=== PATIENT | female | born 2000 | race Caucasian/White ===

== ENCOUNTER 2023-01-16 01:17 | Emergency (ER) | payer SELFPAY ==
[~2023-01-16] VITALS: Ht 160 cm; Wt 129.2 kg
[2023-01-16 01:22] VITALS: O2SAT 98
[2023-01-16] MEDS ORDERED: METHYLPREDNISOLONE SOD SUCC 125MG/2ML (ACT-O-VIAL) IM STA (01:27)
[2023-01-16] MEDS ORDERED: FAMOTIDINE 20MG TABLET PO ONE (01:30)
[2023-01-16] MEDS ORDERED: DIPHENHYDRAMINE 50MG/ML VIAL IM ONE (01:30)
[2023-01-16] MEDS ORDERED: P50 PO (01:59)
[2023-01-16] MEDS ORDERED: DIPH25CA83 PO (01:59)
[2023-01-16 02:29] VITALS: BP 144/77; PULSE 89; RESP 16; TEMP 98.8
== END 2023-01-16 02:42 | disposition home or self-care (01) ==
LOC: ER 01:17
DX: L50.9 Urticaria, unspecified (principal); T78.40XA Allergy, unspecified, initial encounter; X58.XXXA Exposure to other specified factors, initial encounter
CPT/HCPCS: 81025; 96372; 99284; J1200; J2930; Z7610